=== PATIENT | female | born 1995 | race American Indian/Alaskan Native ===

== ENCOUNTER 2019-06-05 10:43 | Outpatient (CLI) | payer OTHER, MEDICAID ==
[2019-06-05 11:49] LABS: Basophils % (Auto) 0.2 % (0.0-1.8); Eosinophils % (Auto) 0.4 % (0.0-4.3); Hematocrit 40.3 % (30.3-42.9); Hemoglobin 12.8 gm/dl (10.1-14.3); Lymphocytes # (Auto) 1.3 K/mm3 (1.2-5.4); Lymphocytes % (Auto) 13.1 % (13.4-35.0); Mean Corpuscular HGB Conc 32 % (30-34); Mean Corpuscular Volume 79 fl (79-97); Monocytes # (Auto) 1.1 K/mm3 (0.0-0.8); Monocytes % (Auto) 11.3 % (0.0-7.3); Platelet Count 161 K/mm3 (140-440); Red Blood Count 5.09 M/mm3 (3.65-5.03); Red Cell Distribution Width 15.3 % (13.2-15.2)
[2019-06-05 11:53] LABS: Bilirubin,Urine NEG (Negative); Blood,Urine NEG (Negative); Color,Urine Straw (Yellow); Protein,Urine <15 mg/dL mg/dL (Negative); Urobilinogen,Urine < 2.0 mg/dL (<2.0); WBC,Urine < 1.0 /HPF (0.0-6.0)
[2019-06-05 11:59] LABS: RBC,Urine < 1.0 /HPF (0.0-6.0)
[2019-06-05 12:09] LABS: Alanine Aminotransferase 27 units/L (7-56); Uric Acid 2.9 mg/dL (3.5-7.6)
[2019-06-05 13:11] VITALS: BP 120/73
[2019-06-05 15:02] LABS: Creatinine,Urine 20.4 mg/dL (0.1-20.0)
== END 2019-06-05 13:43 | disposition home or self-care (01) ==
LOC: TRG 10:43
PROVIDERS: ATTEND Obstetrics & Gynecology
DX: O16.3 Unspecified maternal hypertension, third trimester (principal); Z3A.38 38 weeks gestation of pregnancy
CPT/HCPCS: 36415; 81001; 82565; 82570; 83615; 84156; 84450; 84460; 84550; 85025; 86850; 86900; 86901

== ENCOUNTER 2019-06-11 11:20 | Outpatient (CLI) | payer OTHER, MEDICAID ==
[2019-06-11 12:12] LABS: Bilirubin,Urine NEG (Negative); Blood,Urine NEG (Negative); Color,Urine Yellow (Yellow); Mucus,Urine FEW /HPF; Protein,Urine <15 mg/dL mg/dL (Negative); Urobilinogen,Urine < 2.0 mg/dL (<2.0); WBC,Urine < 1.0 /HPF (0.0-6.0)
[2019-06-11 12:13] VITALS: BP 123/78
== END 2019-06-11 12:19 | disposition home or self-care (01) ==
LOC: TRG 11:20
PROVIDERS: ATTEND Obstetrics & Gynecology
DX: O47.1 False labor at or after 37 completed weeks of gestation (principal); Z3A.39 39 weeks gestation of pregnancy
CPT/HCPCS: 59025; 81001

== ENCOUNTER 2019-06-23 04:15 | Inpatient (IN) | payer OTHER, MEDICAID ==
[2019-06-23] MEDS ORDERED: LACTATED RINGERS 1,000 ML ONE (06:32)
[2019-06-23] MEDS ORDERED: MINERAL OIL 30 ML ORAL LIQD PO PRN (06:33)
[2019-06-23] MEDS ORDERED: ePHEDrine SULFATE 50 MG/1 ML INJ IV PRN (06:33)
[2019-06-23] MEDS ORDERED: TERBUTALINE 1 MG/1 ML INJ SUB-Q PRN (06:33)
[2019-06-23] MEDS ORDERED: ONDANSETRON 4 MG/2 ML INJ IV PRN ×2 (06:33→19:19)
[2019-06-23] MEDS ORDERED: fentaNYL 100 MCG/2 ML INJ IV PRN (06:33)
[2019-06-23] MEDS ORDERED: LIDOCAINE (2%) 20 MG/1 ML VIAL 20 ML MDV INFILTRATI ONE ×2 (06:33→14:19)
[2019-06-23] MEDS ORDERED: NALOXONE 0.4 MG/1 ML INJ IV PRN (06:33)
[2019-06-23] MEDS ORDERED: TERBUTALINE 1 MG/1 ML INJ IVP PRN (06:33)
[2019-06-23] MEDS ORDERED: AMPICILLIN/NS 2 GM/100 ML 2 GM/100 ML BAG IV ONE (06:33)
[2019-06-23] MEDS ORDERED: BUTORPHANOL 2 MG/1 ML INJ IV PRN (06:33)
[2019-06-23] MEDS ORDERED: OXYTOCIN 20 UNIT/1000ML DRIP 20 UNITS/1,000 ML BAG IV SCH ×2 (07:00→19:19)
[2019-06-23] MEDS ORDERED: OXYTOCIN DRIP 30 UNITS/500 ML BAG IV SCH (07:00)
[2019-06-23] MEDS ORDERED: LACTATED RINGERS 1,000 ML IV SCH (07:00)
[2019-06-23 07:04] LABS: Hematocrit 41.8 % (30.3-42.9); Hemoglobin 13.4 gm/dl (10.1-14.3); Mean Corpuscular HGB Conc 32 % (30-34); Mean Corpuscular Volume 79 fl (79-97); Platelet Count 176 K/mm3 (140-440); Red Blood Count 5.29 M/mm3 (3.65-5.03); Red Cell Distribution Width 15.6 % (13.2-15.2)
[2019-06-23] MEDS ORDERED: AMPICILLIN/NS 1 GM/50 ML 1 GM/50 ML BAG IV SCH (10:34)
--- NOTE | 2019-06-23 11:06 | History and Physical Report ---
History of Present Illness Date of examination: 06/23/19 Date of admission: 06/23/19 06:37 Chief complaint: contractions History of present illness: Pt is a 23 year old -Cypriot female KASANDRA 06/17/19 at 40w6d presents with contractions. She denies vaginal bleeding or leakage of fluid. She has had care at [facility] since 16 wks complicated by alpha thalassemia status, trichomonas treated with negative test of cure and GBS positive status. 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: trichomonas (treated with negative KENDAL ) Family/Genetic History: diabetes, heart disease Social history: no significant social history - Obstetrical History Expected Date of Delivery: 06/17/19 Actual Gestation: 40 Week(s) 6 Day(s) : 4 Para: 0 Hx # Term Pregnancies: 0 Number of Pregnancies: 0 Spontaneous Abortions: 3 Induced : 0 Number of Living Children: 0 Medications and Allergies Allergies Allergy/AdvReac Type Severity Reaction Status Date / Time No Known Allergies Allergy Verified 06/11/19 11:32 Home Medications Medication Instructions Recorded Confirmed Last Taken Type No Known Home Medications [No 06/05/19 06/05/19 Unknown History Reported Home Medications] Active Meds: Active Medications Butorphanol Tartrate (Stadol) 2 mg IV Q2H PRN PRN Reason: Pain , Severe (7-10) Ephedrine Sulfate (Ephedrine Sulfate) 10 mg IV Q2M PRN PRN Reason: Hypotension Fentanyl (Sublimaze) 100 mcg IV Q2H PRN PRN Reason: Labor Pain Oxytocin/Sodium Chloride (Pitocin/Ns 20 Unit/1000ml Drip) 20 units in 1,000 mls @ 125 mls/hr IV DIRECT ILIANA Oxytocin/Sodium Chloride (Pitocin/Ns 30 Unit/500ml) 30 units in 500 mls @ 2 mls/hr IV TITR ILIANA; Protocol Lactated Ringer's (Lactated Ringers) 1,000 mls @ 125 mls/hr IV DIRECT ILIANA Last Admin: 06/23/19 06:50 Dose: 125 mls/hr Documented by: Ampicillin Sodium (Ampicillin/Ns 1 Gm/50 Ml) 1 gm in 50 mls @ 100 mls/hr IV Q4HR ILIANA; Protocol Mineral Oil (Mineral Oil) 30 ml PO QHS PRN PRN Reason: Constipation Naloxone HCl (Naloxone) 0.1 mg IV Q2MIN PRN PRN Reason: Res Rate </= 8 or 02 SAT < 92% Ondansetron HCl (Zofran) 4 mg IV Q8H PRN PRN Reason: Nausea And Vomiting Terbutaline Sulfate (Brethine) 0.25 mg SUB-Q ONCE PRN PRN Reason: Hyperstimulation/Hypertonicity Terbutaline Sulfate (Brethine) 0.25 mg IVP ONCE PRN PRN Reason: Hyperstimulation/Hypertonicity Review of Systems All systems: negative - Vital Signs Vital signs: Vital Signs Temp Resp 98.3 F 18 06/23/19 04:43 06/23/19 04:43 Temp Pulse Resp BP Pulse Ox 98.3 F 110 H 18 113/74 06/23/19 04:43 06/23/19 08:48 06/23/19 04:43 06/23/19 08:48 - Physical Exam Breasts: Positive: deferred Cardiovascular: Regular rate Lungs: Positive: Clear to auscultation Abdomen: Positive: soft (gravid ) Genitourinary (Female): Positive: normal external genitalia Uterus: Positive: enlarged (gravid ) Extremities: Positive: normal - Obstetrical FHR: auscultation normal Uterine Contraction Monitor Mode: External Cervical Dilatation: 6 Cervical Effacement Percentage: 90 station: -2 Uterine Contraction Pattern: Regular Uterine Tone Measurement Phase: Resting Uterine Contraction Intensity: Strong/Firm Results Result Diagrams: 06/23/19 05:45 Abnormal lab results 06/23/19 Range/Units 05:45 WBC 11.3 H (4.5-11.0) K/mm3 RBC 5.29 H (3.65-5.03) M/mm3 MCH 25 L (28-32) pg RDW 15.6 H (13.2-15.2) % All other labs normal. Assessment and Plan A: IUP at 40w6d Transitional Labor GBS Positive Alpha-thalassemia carrier P: Admit to labor and delivery GBS prophylaxis Routine intrapartum care Anticipate vaginal delivery
[2019-06-23] MEDS ORDERED: MIDAZOLAM 5 MG/5 ML INJ MDV IV ONE (11:52)
[2019-06-23] MEDS ORDERED: PROPOFOL 200 MG/20 ML VIAL IV ONE (11:53)
[2019-06-23] MEDS ORDERED: KETAMINE/STERILE WATER 50 MG/ML SYRINGE ONE (11:54)
[2019-06-23] MEDS ORDERED: dexAMETHasone 20 MG/5 ML VIAL ONE (12:30)
[2019-06-23] MEDS ORDERED: SUCCINYLCHOLINE CHLORIDE 200 MG/10 ML INJ MDV ONE (12:30)
[2019-06-23] MEDS ORDERED: TRANEXAMIC ACID 1,000 MG/10 ML ONE (12:30)
[2019-06-23] MEDS ORDERED: SODIUM CHLORIDE 0.9% 500 ML 500 ML ONE (12:30)
[2019-06-23] MEDS ORDERED: HETASTARCH 6% 500 ML IV ONE (12:30)
[2019-06-23] MEDS ORDERED: ONDANSETRON 4 MG/2 ML INJ ONE (12:30)
[2019-06-23] MEDS ORDERED: SODIUM CHLORIDE 0.9% 100 ML ONE (12:30)
[2019-06-23] MEDS ORDERED: BUPIVACAINE/PF (0.5%) 5 MG/1 ML 30 ML VIAL INFILTRATI ONE (12:30)
[2019-06-23] MEDS ORDERED: OXYTOCIN 10 UNIT/1 ML INJ ONE (12:30)
[2019-06-23] MEDS ORDERED: LACTATED RINGERS 2,000 ML ONE (12:30)
[2019-06-23] MEDS ORDERED: ROCURONIUM 50 MG/5 ML INJ IV ONE (12:30)
[2019-06-23] MEDS ORDERED: DEXMEDETOMIDINE 200 MCG/2 ML VIAL IV ONE (12:30)
--- NOTE | 2019-06-23 13:18 | Event Note ---
Date: 06/23/19 Pt uncomfortable with contractions. SVE: /0. AROM- meconium stained fluid. Continue routine intrapartum care.
[2019-06-23] MEDS ORDERED: GLYCOPYRROLATE 0.4 MG/2 ML INJ ONE (13:25)
[2019-06-23] MEDS ORDERED: NEOSTIGMINE 10MG/10 ML INJ MDV ONE (13:25)
[2019-06-23] MEDS ORDERED: METHYLERGONOVINE MALEATE 0.2 MG/ML VIAL IM ONE ×2 (14:30→20:00)
--- NOTE | 2019-06-23 15:21 | Procedure Note ---
OB Delivery Note - Delivery Date of Delivery: 06/23/19 Surgeon: KRISTIE MEDEROS Estimated blood loss: 500cc - Vaginal Delivery presentation: vertex Delivery position: OA Intrapartum events: PROM->1hr before delivery, meconium, decreased FHT variability, uterine atony Delivery induction: none Delivery augmentation: rupture of membranes Delivery monitor: external FHT, external uterine Route of delivery: Delivery placenta: spontaneous Delivery cord: 3 umbilical vessels Episiotomy: midline Delivery laceration: 2nd degree Delivery repair: vicryl Anesthesia: local Delivery comments: Pt progressed to complete/complete/+3 and pushed to deliver a viable male over midline episiotomy via under no anesthesia. Head delivered BRIANNE, followed easily by shoulders and body. Body cord x 1. placed on maternal abdomen. Cord clamped and cut and handed to JUSTINE member in attendance. Placenta delivered spontaneously (3VC, intact). Uterine atony noted. Methergine 0.2 mg IM administered with good response in uterine tone. Vagina and perineum explored. Second degree laceration repaired with 2-0 Vicryl in a standard fashion. Hemostasis noted. EBL 500 mL.
[2019-06-23] MEDS ORDERED: PROMETHAZINE 25 MG RECT SUPP PR PRN (19:19)
[2019-06-23] MEDS ORDERED: PROMETHAZINE 25 MG TAB PO PRN (19:19)
[2019-06-23] MEDS ORDERED: WITCH HAZEL/ GLYCERIN PAD TP PRN (19:19)
[2019-06-23] MEDS ORDERED: LANOLIN/ZINC/DIMETHICONE (LANSINOH) 7 GM TP PRN ×2 (19:19)
[2019-06-23] MEDS ORDERED: MAGNESIUM HYDROXIDE (MOM) ORAL LIQD UDC PO PRN (19:19)
[2019-06-23] MEDS ORDERED: diphenhydrAMINE 25 MG CAP PO PRN (19:19)
[2019-06-23] MEDS ORDERED: BENZOCAINE/MENTHOL 20/0.5% TOP SPRAY 56 GM TP PRN (19:19)
[2019-06-23] MEDS ORDERED: ACETAMINOPHEN 325 MG TAB PO PRN (19:19)
[2019-06-23] MEDS ORDERED: HYDROcodone/ACETAMINOPHEN 5-325 MG TAB PO PRN (19:19)
[2019-06-23] MEDS: IBUPROFEN 600 MG TAB PO SCH (20:51)
[2019-06-23] MEDS: FERROUS SULFATE 325 MG TAB PO SCH (22:09)
[2019-06-24] MEDS ORDERED: TETANUS,DIPH,PERTUSS(ACELL) VACCINE 0.5 ML SYRINGE IM ONE (06:00)
[2019-06-24] MEDS ORDERED: MEASLES, MUMPS & RUBELLA 12,500 UNIT/0.5 ML VACCINE SUB-Q ONE (06:00)
[2019-06-24] MEDS: IBUPROFEN 600 MG TAB PO SCH ×4 (06:46→23:38)
[2019-06-24 07:37] LABS: Hematocrit 33.7 % (30.3-42.9); Hemoglobin 10.8 gm/dl (10.1-14.3)
--- NOTE | 2019-06-24 08:47 | Progress Note ---
Assessment and Plan A/P PPD1 Doing well PP hgb 13.4-10.8 D/C home tomorrow Subjective - Subjective Date of service: 06/24/19 Principal diagnosis: s/p Patient reports: appetite normal, voiding normally, pain well controlled, flatus, ambulating normally Kite: doing well Objective - Vital Signs Latest vital signs: Vital Signs Temp Pulse Resp BP BP Pulse Ox 06/24/19 04:00 98.6 F 67 18 118/79 06/24/19 00:00 98.8 F 71 18 112/78 06/23/19 19:30 98.7 F 66 18 120/84 06/23/19 18:50 97.3 F L 93 H 22 118/66 97 06/23/19 17:00 116 H 122/73 06/23/19 16:45 93 H 122/75 06/23/19 16:30 90 131/82 06/23/19 16:15 80 129/73 06/23/19 16:00 73 130/73 06/23/19 15:45 75 129/74 06/23/19 15:30 86 123/74 06/23/19 15:15 86 131/77 06/23/19 14:52 89 100 06/23/19 14:47 97 H 100 06/23/19 14:42 76 100 06/23/19 14:37 71 100 06/23/19 14:32 75 100 06/23/19 14:27 78 100 06/23/19 14:22 98 H 100 06/23/19 08:48 110 H 113/74 Intake and Output 06/23/19 06/24/19 06/24/19 23:59 07:59 15:59 Intake Total 300 500 Output Total 1400 Balance -1100 500 Intake: Oral 200 Intake, Free Water 300 300 Output: Urine 1400 Void 1400 Other: Total, Intake Amount 200 Total, Output Amount 600 # Voids Void 1 - Exam Breasts: Present: normal Cardiovascular: Present: Regular rate, Normal S1 Lungs: Present: Clear to auscultation, Normal air movement Abdomen: Present: normal appearance, soft, normal bowel sounds. Absent: distention, tenderness, guarding Uterus: Present: normal, firm Extremities: Present: normal Deep Tendon Reflex Grade: Normal +2
--- NOTE | 2019-06-24 08:49 | Discharge Summary ---
Providers - Providers Date of Admission: 06/23/19 06:37 Date of discharge: 06/25/19 Attending physician: KRISTIE MEDEROS Primary care physician: KRISTIE MEDEROS Hospitalization Reason for admission: active labor Delivery: Episiotomy: none Laceration: none Incision: normal, dry, intact Other procedures: none Discharge diagnosis: IUP at term delivered baby: male Hospital course: Routine PP care Discharged on HD2 Condition at discharge: Good Disposition: DC-01 TO HOME OR SELFCARE Plan - Discharge Medications Prescriptions: Ferrous Sulfate [Feosol 325 MG tab] 325 mg PO BID #60 tablet Ibuprofen [Motrin] 800 mg PO Q8HR PRN #30 tablet PRN Reason: Pain, Moderate (4-6) HYDROcodone/APAP 5-325 [[place] 5/325] 1 each PO Q6HR PRN #20 tablet PRN Reason: Pain - Provider Discharge Summary Activity: routine, no sex for 6 weeks, no strenuous exercise Diet: routine Instructions: routine Additional instructions: [] Smoking cessation referral if applicable(refer to patient education folder for contact #) [] Refer to [facility] Booklet Call your doctor immediately for: * Fever > 100.5 * Heavy vaginal bleeding ( >1 pad per hour) * Severe persistent headache * Shortness of breath * Reddened, hot, painful area to leg or breast * Drainage or odor from incision. * Keep incision clean and dry at all times and follow doctor's instructions regarding bathing/showering - Follow up plan Follow up: KRISTIE MEDEROS MD [Primary Care Provider] - 07/15/19
[2019-06-24] MEDS: FERROUS SULFATE 325 MG TAB PO SCH ×2 (10:15→23:38)
[2019-06-25] MEDS: FERROUS SULFATE 325 MG TAB PO SCH (09:50)
[2019-06-25] MEDS: IBUPROFEN 600 MG TAB PO SCH (09:51)
[2019-06-25 16:44] VITALS: BP 132/86
== END 2019-06-25 15:15 | disposition home or self-care (01) | DRG 807 ==
LOC: TRG 04:15 → LD 06:37 → OB 18:50
PROVIDERS: ADMIT Obstetrics & Gynecology; ATTEND Obstetrics & Gynecology
PROC: 10E0XZZ Delivery of Products of Conception, External Approach (ICD-10-PCS; principal; 2019-06-23)
PROC: 0KQM0ZZ Repair Perineum Muscle, Open Approach (ICD-10-PCS; 2019-06-23)
PROC: 10907ZC Drainage of Amniotic Fluid, Therapeutic from Products of Conception, Via Natural or Artificial Opening (ICD-10-PCS; 2019-06-23)
PROC: 0W8NXZZ Division of Female Perineum, External Approach (ICD-10-PCS; 2019-06-23)
PROC: 3E0234Z Introduction of Serum, Toxoid and Vaccine into Muscle, Percutaneous Approach (ICD-10-PCS; 2019-06-24)
DX: O99.824 Streptococcus B carrier state complicating childbirth (principal); Z37.0 Single live birth; O99.12 Other diseases of the blood and blood-forming organs and certain disorders involving the immune mechanism complicating childbirth; D56.0 Alpha thalassemia; O99.02 Anemia complicating childbirth; O77.0 Labor and delivery complicated by meconium in amniotic fluid; O42.92 Full-term premature rupture of membranes, unspecified as to length of time between rupture and onset of labor; O70.1 Second degree perineal laceration during delivery; O76 Abnormality in fetal heart rate and rhythm complicating labor and delivery; Z82.49 Family history of ischemic heart disease and other diseases of the circulatory system; Z83.3 Family history of diabetes mellitus; O62.2 Other uterine inertia; Z3A.40 40 weeks gestation of pregnancy; Z23 Encounter for immunization
CPT/HCPCS: 36415; 85014; 85018; 85027; 86850; 86900; 86901; 96360; 96361; 96372; G0378; J0290; J0330; J1100; J2210; J2250; J2405; J2590; J2704; J2710; J3490; J7040; J7120

== ENCOUNTER 2020-06-23 17:52 | Inpatient (IN) | payer MEDICAID ==
[2020-06-23] MEDS ORDERED: LACTATED RINGERS 1,000 ML ONE (18:41)
[2020-06-23] MEDS ORDERED: LACTATED RINGERS 1,000 ML IV SCH ×2 (18:45→20:45)
[2020-06-23] MEDS ORDERED: LACTATED RINGERS 1,000 ML IV ONE (19:28)
[2020-06-23 19:45] LABS: Bacteria,Urine 1+ /HPF (Negative); Bilirubin,Urine NEG (Negative); Blood,Urine NEG (Negative); Color,Urine Straw (Yellow); Mucus,Urine FEW /HPF; Protein,Urine <15 mg/dL mg/dL (Negative); Urobilinogen,Urine < 2.0 mg/dL (<2.0)
[2020-06-23] MEDS ORDERED: AMPICILLIN/NS 2 GM/100 ML 2 GM/100 ML BAG IV ONE ×2 (20:36→20:42)
[2020-06-23] MEDS ORDERED: METHYLERGONOVINE MALEATE 0.2 MG/ML VIAL IM PRN (20:42)
[2020-06-23] MEDS ORDERED: miSOPROStol 200 MCG TAB PR PRN (20:42)
[2020-06-23] MEDS ORDERED: TERBUTALINE 1 MG/1 ML INJ SUB-Q PRN (20:42)
[2020-06-23] MEDS ORDERED: OXYTOCIN 10 UNIT/1 ML INJ IM PRN (20:42)
[2020-06-23] MEDS ORDERED: MINERAL OIL 30 ML ORAL LIQD PO PRN (20:42)
[2020-06-23] MEDS ORDERED: ePHEDrine SULFATE 50 MG/1 ML INJ IV PRN (20:42)
[2020-06-23] MEDS ORDERED: LIDOCAINE (2%) 20 MG/1 ML VIAL 20 ML MDV INFILTRATI ONE (20:42)
[2020-06-23] MEDS ORDERED: CARBOPROST TROMETHAMINE 250 MCG/1 ML INJ IM PRN (20:42)
[2020-06-23] MEDS ORDERED: ONDANSETRON 4 MG/2 ML INJ IV PRN (20:42)
--- NOTE | 2020-06-23 20:54 | History and Physical Report ---
History of Present Illness Date of examination: 06/23/20 Date of admission: 06/23/20 18:42 Chief complaint: c/o painful ctx's all day. Pt denies vaginal bleeding, LOF and reports +FM. History of present illness: Patient states she [place] contractions [place]. Contractions became progressively worse thruout the day. She called the office with this complaints and was instructed to go to [facility] for evaluation. Exam revealed 8cm dilated and eminent delivery Past History : 5 Term Births: 1 Premature Births: 0 Living Children: 1 Para: 1 Mult. Births: 0 Prev : 0 Aborta: 0 Elect. Ab: 0 Spont. Ab: 3 Ectopics: 0 # 1 Delivery date: 08/23/2015 Anesthesia type: none Comments: SAB: had blood transfusion, no D&C # 2 Delivery date: 2015 Comments: SAB: No D&C # 3 Delivery date: 2016 Comments: SAB: No D&C # 4 Delivery date: 06/23/2019 Weeks Gestation: 41 labor: no Delivery type: Anesthesia type: none Delivery location: [facility] Sex: Male weight: 7-4 Comments: GBS Positive this labor, meconium stained fluid Past Medical History: Reviewed history and no changes required: Blood Transfusion: 2015 Past Surgical History: Reviewed history and no changes required: negative Past Medical History Anesthesia Complications: negative Anemia: negative Autoimmune Disorder: negative Bleeding Disorder: negative Blood Transfusions: positive, 2015 Breast Disease: negative Diabetes: negative Heart Disease: negative Hypertension: negative Hepatitis/Liver Disease: negative Kidney Disease/UTI: negative Neurologic/Epilepsy/Migraines: negative Phlebitis/Varicosities: negative Psychiatric: negative Pulmonary Disease/Asthma: negative Thyroid Disease: negative Hospitalizations: negative Surgery (Non-photographic engineer): negative Abnormal PAP: negative VERENICE Exposure: negative Infertility: negative Uterine Anomaly: negative Uterine Surgery (not C/S): negative Other Gynecologic Problems: negative Family Hx: Grandmother: DM, breast cancer Infection History Hx of STD: Trich HIV Risk Eval: no Hepatitis B Risk Eval: low risk Personal hx. of genital herpes: no Partner hx. of genital herpes: no Rash, Viral, or Febrile illness since last LMP? no Varicella/Chicken Pox Status: No Genetic History Congenital Heart Defect: Mom: no Dad: no Nitesh Disease: Mom: no Dad: no Thalassemia Mom: no Dad: no Neural Tube Defect Mom: no Dad: no Down's Syndrome Mom: no Dad: no Solis-Sachs Mom: no Dad: no Sickle Cell Disease/Trait Mom: no Dad: no Hemophilia Mom: no Dad: no Muscular Dystrophy Mom: no Dad: no Cystic Fibrosis Mom: no Dad: no [place] Chorea Mom: no Dad: no Mental Retardation Mom: no Dad: no Fragile X Mom: no Dad: no Other Genetic/Chromosomal Disorder Mom: no Dad: no Child w/other defect Mom: no Dad: no Enviromental Exposures Xray Exposure: no Medication, drug, or alcohol use since LMP: no Chemical/Other Exposure: no Exposure to Cat Liter: no Hx of Parvovirus (Fifth Disease): no Occupational Exposure to Children: none Active Medications: None Current Allergies (reviewed today): No known allergies Past History - Obstetrical History Expected Date of Delivery: 08/29/20 Actual Gestation: 30 Week(s) 3 Day(s) : 5 Number of Living Children: 1 () Medications and Allergies Allergies Allergy/AdvReac Type Severity Reaction Status Date / Time No Known Allergies Allergy Verified 06/11/19 11:32 Home Medications Medication Instructions Recorded Confirmed Last Taken Type Ferrous Sulfate [Feosol 325 MG tab] 325 mg PO BID #60 tablet 06/24/19 Unknown Rx HYDROcodone/APAP 5-325 [[place] 1 each PO Q6HR PRN #20 tablet 06/24/19 Unknown Rx 5/325] Ibuprofen [Motrin] 800 mg PO Q8HR PRN #30 tablet 06/24/19 Unknown Rx Active Meds: Active Medications Carboprost Tromethamine (Hemabate) 250 mcg IM ONCE PRN PRN Reason: Uterine Bleeding Ephedrine Sulfate (Ephedrine Sulfate) 10 mg IV Q2M PRN PRN Reason: Hypotension Fentanyl (Sublimaze) 100 mcg IV ONCE ONE Stop: 06/23/20 20:46 Lactated Ringer's (Lactated Ringers) 1,000 mls @ 125 mls/hr IV DIRECT ILIANA Lactated Ringer's (Lactated Ringers) 1,000 mls @ 125 mls/hr IV DIRECT ILIANA Oxytocin/Sodium Chloride (Pitocin/Ns 30 Unit/500ml) 30 units in 500 mls @ 40 mls/hr IV TITR ILIANA; Protocol Ampicillin Sodium (Ampicillin/Ns 2 Gm/100 Ml) 2 gm in 100 mls @ 100 mls/hr IV ONCE ONE; Protocol Stop: 06/23/20 21:41 Ampicillin Sodium (Ampicillin/Ns 1 Gm/50 Ml) 1 gm in 50 mls @ 100 mls/hr IV Q4HR [facility]; Protocol Lidocaine (Xylocaine 2%) 20 ml INFILTRATI ONCE ONE Stop: 06/23/20 20:43 Methylergonovine Maleate (Methergine) 0.2 mg IM ONCE PRN PRN Reason: Uterine Bleeding Mineral Oil (Mineral Oil) 30 ml PO QHS PRN PRN Reason: Constipation Misoprostol (Cytotec) 800 mcg IA ONCE PRN PRN Reason: Uterine Bleeding Nifedipine (Procardia*For Tocolysis Only*) 20 mg PO ONCE ONE Stop: 06/23/20 20:59 Ondansetron HCl (Zofran) 4 mg IV Q8H PRN PRN Reason: Nausea And Vomiting Oxytocin (Pitocin) 10 unit IM ONCE PRN PRN Reason: Uterine Bleeding Terbutaline Sulfate (Brethine) 0.25 mg SUB-Q ONCE PRN PRN Reason: Hyperstimulation/Hypertonicity Review of Systems Genitourinary: contractions - Vital Signs Vital signs: Vital Signs Pulse BP Pulse Ox 96 H 114/63 95 06/23/20 18:25 06/23/20 18:25 06/23/20 18:25 Temp Pulse Resp BP Pulse Ox 98.7 F 121 H 18 113/66 96 06/23/20 20:44 06/23/20 20:48 06/23/20 20:44 06/23/20 20:44 06/23/20 20:48 - Physical Exam Breasts: Positive: deferred Cardiovascular: Regular rate Lungs: Positive: Normal air movement Abdomen: Positive: soft. Negative: tenderness Genitourinary (Female): Positive: normal external genitalia, normal perenium Vulva: right: normal (slight edema (L) labia major) Uterus: Positive: enlarged. Negative: tender Anus/Rectum: Positive: normal perianal skin Extremities: Positive: normal - Obstetrical FHR: category 1 Uterine Contraction Monitor Mode: External Cervical Dilatation: 8 Cervical Effacement Percentage: 100 station: -2 Uterine Contraction Frequency (min): q4 Uterine Contraction Pattern: Regular Uterine Contraction Intensity: Strong/Firm Results All other labs normal. Assessment and Plan - Patient Problems (1) 33 weeks gestation of Current Visit: Yes Status: Acute (2) labor Current Visit: Yes Status: Acute Plan to address problem: Will start IV fluid and Ampicillin, US to confirm vtx. NICU aware. Patient aware of advanced dilation and imminent delivery. Questions encouraged and answered, she voiced understanding
[2020-06-23] MEDS ORDERED: NIFEdipine*For Tocolysis only* 10 MG CAPSULE PO ONE (20:58)
[2020-06-23] MEDS ORDERED: fentaNYL 100 MCG/2 ML INJ IV ONE (21:00)
[2020-06-23 21:02] LABS: Hematocrit 35.6 % (30.3-42.9); Hemoglobin 11.4 gm/dl (10.1-14.3); Mean Corpuscular HGB Conc 32 % (30-34); Mean Corpuscular Volume 78 fl (79-97); Platelet Count 175 K/mm3 (140-440); Red Blood Count 4.59 M/mm3 (3.65-5.03); Red Cell Distribution Width 14.9 % (13.2-15.2)
--- NOTE | 2020-06-23 21:13 | Ultrasound Report ---
US OB limited INDICATION: presentation. COMPARISON: None available. FINDINGS: presentation is cephalic. heart rate measures 1 38 bpm. Signer Name: Ricardo Patiño MD Signed: 06/23/2020 9:08 PM Workstation Name: [id number]
[2020-06-23] MEDS: OXYTOCIN DRIP 30 UNITS/500 ML BAG IV SCH ×2 (22:22→23:12)
--- NOTE | 2020-06-23 22:48 | Procedure Note ---
OB Delivery Note - Delivery Date of Delivery: 06/23/20 Surgeon: MADHAV VAIL Estimated blood loss: 200cc - Vaginal Delivery presentation: vertex Delivery position: OA Intrapartum events: labor-<37 weeks, mult.variable deceleratio (Decision made to proceed witih AROM d/t repetitive variable decels with contractions, cervix was 10/10/-2. Clear fluid noted. ) Delivery induction: none Delivery augmentation: rupture of membranes Delivery monitor: external FHT, external uterine Route of delivery: Delivery placenta: spontaneous (intact, sent to pathology) Episiotomy: none Delivery laceration: 1st degree Delivery repair: vicryl (2%lidocaine w/o epi, subcutaneous stitch 3-0 vicryl x1) - Infant A at 1 minute: 7 at 5 minutes: 6 Gender: Male (Liveborn male with spontaneous cry, pink and good movement/tone, delayed cord clamp [id number] per NICU instruction. Cord then clamped and cut and placed on giraffe bed with NICU staff present. voided on the NICU bed, NICU staff aware of possible (B) pyelectasis. Apgars 7/6/9)
[2020-06-24] MEDS ORDERED: AMPICILLIN/NS 1 GM/50 ML 1 GM/50 ML BAG IV SCH (00:44)
[2020-06-24] MEDS ORDERED: WITCH HAZEL/ GLYCERIN PAD TP PRN (00:50)
[2020-06-24] MEDS ORDERED: PROMETHAZINE 25 MG RECT SUPP PR PRN (00:50)
[2020-06-24] MEDS ORDERED: MAGNESIUM HYDROXIDE (MOM) ORAL LIQD UDC PO PRN (00:50)
[2020-06-24] MEDS ORDERED: PROMETHAZINE 25 MG TAB PO PRN (00:50)
[2020-06-24] MEDS ORDERED: LANOLIN/ZINC/DIMETHICONE (LANSINOH) 7 GM TP PRN (00:50)
[2020-06-24] MEDS ORDERED: diphenhydrAMINE 25 MG CAP PO PRN (00:50)
[2020-06-24] MEDS ORDERED: ONDANSETRON 4 MG/2 ML INJ IV PRN (00:50)
[2020-06-24] MEDS ORDERED: ACETAMINOPHEN 500 MG TAB PO PRN (00:57)
[2020-06-24] MEDS: IBUPROFEN 600 MG TAB PO SCH ×2 (01:35→09:02)
[2020-06-24 11:54] LABS: Hematocrit 33.2 % (30.3-42.9); Hemoglobin 10.6 gm/dl (10.1-14.3)
--- NOTE | 2020-06-24 13:13 | Discharge Summary ---
Providers - Providers Date of Admission: 06/23/20 18:42 Date of discharge: 06/24/20 (pt would like to go home today if possible) Attending physician: MADHAV VAIL Primary care physician: MADHAV VAIL Hospitalization Reason for admission: active labor, IUP - Delivery: Episiotomy: none Laceration: none Incision: normal Other procedures: none complications: none [place] baby: male (remains in NICU stable) Hospital course: labor @ 30 weeks with delivery uncomplicated delivery NB to NICU Pt awake Has made several trips to the NICU. VSS FF below umb Lochia small Perineum slight swelling intact. H&H10/33 No s/sx of anemia. Doing well s/p delivery P: d/c today with instructions RTO 4 weeks PP care Condition at discharge: Good Disposition: DC-01 TO HOME OR SELFCARE - Discharge Diagnoses (1) Spontaneous vaginal delivery Status: Acute Comment: RTO 4 weeks PP Care Plan - Discharge Medications Prescriptions: Lidocain2.5%/Prilocai2.5% [Emla] 5 gm TP ONCE #1 tube - Provider Discharge Summary Activity: routine, no sex for 6 weeks, no heavy lifting 4 weeks, no strenuous exercise Diet: routine Instructions: routine Additional instructions: [] Smoking cessation referral if applicable(refer to patient education folder for contact #) [] Refer to [facility] Booklet Call your doctor immediately for: * Fever > 100.5 * Heavy vaginal bleeding ( >1 pad per hour) * Severe persistent headache * Shortness of breath * Reddened, hot, painful area to leg or breast * Drainage or odor from incision. * Keep incision clean and dry at all times and follow doctor's instructions reg arding bathing/showering - Follow up plan Follow up: MADHAV VAIL MD [Primary Care Provider] - 07/20/20 (Call [phone] to schedule your visit in 4 weeks. Motrin/ibuprofen for cramping/pain. Call with any concerns.)
[2020-06-24 22:47] VITALS: BP 111/69
[2020-06-25] MEDS ORDERED: DIPHtheria,PERTUSSIS(ACELL),TETANUS VACCINE/PF 0.5 ML VIAL IM ONE (06:00)
== END 2020-06-24 23:25 | disposition home or self-care (01) | DRG 775 ==
LOC: TRG 17:52 → APU 17:53 → TRG 18:42 → LD 18:42 → OBSVTOIN 18:42 → OB 06-24 01:28
PROVIDERS: ADMIT Obstetrics & Gynecology; ATTEND Obstetrics & Gynecology
PROC: 10E0XZZ Delivery of Products of Conception, External Approach (ICD-10-PCS; principal; 2020-06-23)
PROC: 10907ZC Drainage of Amniotic Fluid, Therapeutic from Products of Conception, Via Natural or Artificial Opening (ICD-10-PCS; 2020-06-23)
PROC: 0HQ9XZZ Repair Perineum Skin, External Approach (ICD-10-PCS; 2020-06-23)
PROC: 3E0234Z Introduction of Serum, Toxoid and Vaccine into Muscle, Percutaneous Approach (ICD-10-PCS; 2020-06-24)
DX: O76 Abnormality in fetal heart rate and rhythm complicating labor and delivery (principal); O60.14X0 Preterm labor third trimester with preterm delivery third trimester, not applicable or unspecified; Z20.828 Contact with and (suspected) exposure to other viral communicable diseases; Z37.0 Single live birth; O70.0 First degree perineal laceration during delivery; Z3A.30 30 weeks gestation of pregnancy; Z79.899 Other long term (current) drug therapy
CPT/HCPCS: 36415; 76815; 81001; 85014; 85018; 85027; 86592; 86850; 86900; 86901; 88307; G0378; A6250; J0290; J2590; J7120; U0003